=== PATIENT | male | born 1960 | race Caucasian/White ===

== ENCOUNTER 2017-05-21 14:02 | Emergency (ER) | payer OTHER ==
[~2017-05-21] VITALS: Ht 170.2 cm; Wt 55.6 kg
[2017-05-21] MEDS ORDERED: PERM60CR19 TP (14:34)
[2017-05-21 14:47] VITALS: BP 120/68
== END 2017-05-21 14:48 | disposition home or self-care (01) ==
LOC: ER 14:03
DX: B86 Scabies (principal); B85.1 Pediculosis due to Pediculus humanus corporis; F17.200 Nicotine dependence, unspecified, uncomplicated; Z59.0 Homelessness; Z56.0 Unemployment, unspecified
CPT/HCPCS: 99282